=== PATIENT | male | born 1970 | race Caucasian/White ===

== ENCOUNTER 2025-02-28 10:00 | Emergency (ER) | payer BC, SELFPAY ==
[2025-02-28] VITALS (9 sets, daily range): BP systolic 112–149; BP diastolic 70–113
[2025-02-28 10:42] LABS: INR 1.01; PT 13.4 Sec (11.4-14.6)
[2025-02-28 10:49] LABS: ALT (SGPT) 131 U/L (0-50); AST (SGOT) 222 U/L (17-59); Albumin 4.9 g/dl (3.5-5.0); Alkaline Phosphatase 146 U/L (38-126); Blood Urea Nitrogen 20 mg/dl (9-20); Calcium 8.9 mg/dl (8.4-10.2); Carbon Dioxide 26 mmol/L (22-30); Chloride 102 mmol/L (98-107); Glucose 84 mg/dl (70-99); Potassium 4.4 mmol/L (3.5-5.1); Sodium 141 mmol/L (135-145); Total Protein 8.0 g/dl (6.3-8.2); eGFR > 60.00
--- NOTE | 2025-02-28 11:20 | EDRN ---
Atif provided; pt states ' i don't need this: I'll just flop around'. Reminded that fall prevention is a concern for us.
[2025-02-28 11:28] LABS: Hematocrit 40.9 % (39.0-52.0); Hemoglobin 14.2 g/dL (13.0-18.0); Mean Corp Hgb Conc. 34.7 g/dL (33.0-37.0); Mean Corpuscular Volume 100.0 fL (80.0-94.0); Nucleated Red Blood Cells % 0 % (-); Red Cell Dist. Width 12.9 % (11.5-14.5)
--- NOTE | 2025-02-28 11:41 | ED.GENMED ---
History of Present Illness
General
Chief Complaint: Alcohol Problem
Source: patient
Time Seen by Provider: 02/28/25 11:13
History of Present Illness
History of Present Illness:
55-year-old male presents to the emergency room for evaluation of difficulty walking, feeling more confused. Patient admits to drinking over the past 24 hours and in fact drinks on a daily basis. He estimates that he does about 6 shots of whiskey
a day. Patient does not believe the symptoms he is experiencing are related to his daily alcohol use. He has not had a fever. He does have occasional nausea and vomiting. Patient noticed these changes about a month ago. He is concerned he might
have a brain infection. He denies having a headache at this time.
Past History
Past History
ED Past Medical History: HTN and Hypercholesterolemia
ED Past Surgical History: Cardiac (Stents X2 in Apr and September 2015.) and Other (Torsion)
Social History
Tobacco: Non-smoker
Alcohol: Daily (Vodka 5-6 glasses)
Personal:
Living: with family
Employment: Employed
Family History
Family History: CAD
Phy Exam
Physical Exam
Physical Exam:
General: Awake, Alert, Oriented X3. Slurred speech, appears intoxicated
Vitals: unremarkable
Head: Atraumatic
Eyes: Pupils equal, EOMI, injected conjunctiva
Throat: Airway intact, no exudates
Neck: Trachea midline
Lungs: Clear and equal b/l
Heart: Regular rate, no murmurs
Abd: Soft, Nontender, No pulsatile mass
Neuro: No focal deficit
Skin: Warm, dry, no rash
Extremities: pulses equal b/l, 1+ edema
Scores
Withdrawal Assessment of Alcohol
Withdrawal Assessment Completed?: No
Course
Orders/Labs/Results
Orders:
Orders
02/28/25 10:17
Alcohol Urgent
Comprehensive Metabolic Panel Urgent
Prothrombin Time Urgent
02/28/25 11:17
Complete Blood Count/With Diff Urgent
02/28/25 11:41
0.9% Sodium Chloride 1000 ml [Nss] 1,000 ml IV BOLUS
02/28/25 11:48
Thiamine Injection 500 mg 0.9% Sodium Chloride 250 ml [Nss] 250 ml IV NOW
02/28/25 15:54
Lorazepam [Ativan] 1 mg PO NOW STA
Abnormal Lab Results
02/28/25 02/28/25
10:17 11:17
RBC 4.09 L 10^6/uL
(4.70-6.10)
MCV 100.0 H fL
(80.0-94.0)
MCH 34.7 H pg
(27.0-31.0)
Plt Count 73 L 10^3/uL
(130-400)
MPV 10.8 H fL
(7.4-10.4)
Absolute Lymphs (auto) 4.9 H 10^3/uL
(1.2-3.4)
Absolute Monos (auto) 0.8 H 10^3/uL
(0.1-0.6)
Neutrophils % 38.3 L %
(42.2-75.2)
Total Bilirubin 1.7 H mg/dl
(0.2-1.3)
AST 222 H U/L
(17-59)
ALT 131 H U/L
(0-50)
Alkaline Phosphatase 146 H U/L
(38-126)
Alcohol, Quantitative 450 H* mg/dl
02/28/25 11:17
02/28/25 10:17
Vital Signs
Initial and Last Documented VS:
Initial Vital Signs
Temp Pulse Resp BP Pulse Ox
98.2 F 80 18 136/83 95
02/28/25 10:05 02/28/25 10:05 02/28/25 10:05 02/28/25 10:05 02/28/25 10:05
Last Documented Vital Signs
Temp Pulse Resp BP Pulse Ox
98.2 F 83 18 149/113 95
02/28/25 10:05 02/28/25 17:15 02/28/25 17:15 02/28/25 17:00 02/28/25 11:44
MDM/Problems Addressed
Differential Diagnosis Includes:
Alcohol use disorder, electrolyte abnormality, thiamine deficiency, dehydration
MDM/Problems Addressed:
Patient presents with feeling generally unwell for the past month. He believes he has a sinusitis that has not improved after taking antibiotics prescribed by his primary care provider. Workup here reveals a very high alcohol level. His LFTs are
mildly elevated. Remainder of his chemistries and CBC are reassuring. I believe the patient's symptoms are related to his alcohol use disorder. We were able to arrange for transfer directly to a inpatient rehab facility. Patient medically clear
for this treatment.
*Pulse Oximetry
SaO2: 95
Oxygen Mode of Delivery: Room air
Patient hypoxic: no
*Critical Care Note
Total Time (30-74mins, 75-104mins- exclusive of procedures): Not Applicable
ED Attending Note
-
Portions of this chart may have been created with voice recognition software.� Occasional wrong word or��sound alike� substitutions may have occurred due to the inherent limitations of voice recognition software.
Discharge Plan
Departure
Patient Disposition: Acute Rehab Facility
Date of Disposition: 02/28/25
Time of Disposition: 15:33
Condition: Fair
Discharge Problem:
Alcohol use disorder
Instructions: Alcohol Use Disorder (DC)
Prescriptions:
No Action
lisinopril 10 MG tablet
10 mg PO DAILY
metoprolol succinate 100 MG tablet extended release 24 hr
100 mg PO DAILY Qty: 90 3RF
aspirin 81 MG tablet,delayed release (DR/EC)
81 mg PO DAILY Qty: 0 0RF
potassium 99 mg Tablet
99 mg PO DAILY
gabapentin 300 mg Capsule
300 mg PO BID
folic acid 1 mg Tablet
1 mg PO DAILY
magnesium oxide 200 mg magnesium Tablet
200 mg PO DAILY
Referrals:
Xochilt Whitlock MD [Family Provider, Family Practice]
Interventions
Interventions:
*Risk Screen - Suicide Last Done: 02/28/25 10:05
*General Assessment Last Done: 02/28/25 11:21
*Neglect/Abuse Screening Last Done: 02/28/25 11:21
*ED COVID-19 Vaccine History Last Done: 02/28/25 11:21
*ED Influenza Vaccine History Last Done: 02/28/25 10:05
[facility] Fall Risk Assessment Tool Last Done: 02/28/25 11:19
*Nursing Disposition Last Done: 02/28/25 20:07
ED- Neurological Assessment Last Done: 02/28/25 11:21
ED-Psychological Assessment Last Done: 02/28/25 11:23
Discharge Date and Time
Discharge Date/Time: 02/28/25 20:09
Print Language: HEBREW
[2025-02-28] MEDS: NSS 1000 IV (11:46)
[2025-02-28] MEDS: THIAMINE INJECTION 255 MG IV (12:02)
[2025-02-28 12:56] LABS: Platelet Count 73 10^3/uL (130-400)
[2025-02-28] MEDS: ATIVAN 1 MG PO (16:44)
== END 2025-02-28 20:09 ==
LOC: EMR 10:00
PROVIDERS: Emergency Medicine; EMERGENCY PHYSICIAN Emergency Medicine; FAMILY PHYSICIAN Student in an Organized Health Care Education/Training Program
DX: F10.10 Alcohol abuse, uncomplicated (principal); Y90.8 Blood alcohol level of 240 mg/100 ml or more; R26.2 Difficulty in walking, not elsewhere classified; I10 Essential (primary) hypertension; E78.00 Pure hypercholesterolemia, unspecified; Z95.5 Presence of coronary angioplasty implant and graft
CPT/HCPCS: 96365; 96361; 99284; 80053; 82077; 85025; 85610